=== PATIENT | female | born 1995 | race Hispanic/Latino ===

== ENCOUNTER 2017-05-03 02:16 | Emergency (ER) | payer SELFPAY ==
[2017-05-03 03:00] LABS: #Basophils 0.1 thou/uL (0.0-0.2); #Eosinphils 0.1 thou/uL (0.0-0.7); #Lymphocytes 2.9 thou/uL (1.20-3.40); #Monocytes 0.6 thou/uL (0.11-0.59); #Neutrophils 12.8 thou/uL (1.40-6.50); %Basophils 0.7 % (0.0-1.0); %Eosinophils 0.6 % (0.0-10.0); %Lymphocytes 17.5 % (21.0-51.0); %Monocytes 3.9 % (0.0-10.0); %Neutrophils 77.4 % (42.0-75.0); Hemoglobin 12.1 g/dL (12.0-16.0); Mean Corpuscular HGB CONC 32.3 g/dL (32.0-36.0); Mean Corpuscular Hemoglobin 28.5 pg (27.0-31.0); Mean Corpuscular Volume 88.5 fl (81.0-99.0); Mean Platelet Volume 6.6 fL (7.4-10.4); Platelet Count 276 thou/uL (130-400); Red Blood Cell (RBC) Count 4.23 mill/uL (4.20-5.40); White Blood Cell (WBC) Count 16.5 thou/uL (4.8-10.8)
[2017-05-03] MEDS ORDERED: Ondansetron HCl/PF 4 MG/2 ML Vial ONE (03:07)
[2017-05-03] MEDS ORDERED: Morphine Sulfate 2 MG/ML SYRINGE ONE (03:08)
[2017-05-03] MEDS ORDERED: Sodium Chloride 0.9% 1,000 ML ONE (03:08)
[2017-05-03 03:13] LABS: Clarity Clear (Clear)
[2017-05-03 03:14] LABS: Bilirubin Negative (Negative); Blood, Urine Large (Negative); Glucose, Urine (Dipstick) Negative (Negative); Leukocyte Small (Negative); Nitrite Negative (Negative); Protein, Urine (Dipstick) Trace mg/dL (Neg-Trace); Specific Gravity, Urine 1.025 (1.005-1.030); Urobilinogen 0.2 mg/dL (0.2-1.0)
[2017-05-03 03:15] LABS: Bacteria/HPF None Seen HPF (None Seen); RBC/HPF 21-50 HPF (0-3); WBC/HPF None Seen HPF (0-3)
[2017-05-03 03:21] LABS: Anion Gap 15 mmol/L (10-20); BUN (Urea Nitrogen) 7 mg/dL (7.0-18.7); Calc. Creatinine Clearance 0 mL/min (70-130); Calcium 9.2 mg/dL (7.8-10.44); Carbon Dioxide 17 mmol/L (22-29); Chloride 107 mmol/L (98-107); Estimated GFR-MDRD Greater than 90; Glucose 89 mg/dL (70-105); Potassium 3.9 mmol/L (3.5-5.1); Sodium 135 mmol/L (136-145)
== END 2017-05-03 03:29 | disposition short-term general hospital (02) ==
LOC: NAV ERS 02:16
DX: O99.89 Other specified diseases and conditions complicating pregnancy, childbirth and the puerperium (principal); R10.32 Left lower quadrant pain; R10.31 Right lower quadrant pain; Z3A.14 14 weeks gestation of pregnancy
CPT/HCPCS: 36415; 80048; 81003; 81015; 84702; 85025; 96374; 96375; A4353; J2270; J2405; J7050

== ENCOUNTER 2019-11-23 05:43 | Emergency (ER) | payer MEDICAID, SELFPAY ==
[2019-11-23 06:12] LABS: #Basophils 0.1 thou/uL (0.0-0.2); #Eosinphils 0.1 thou/uL (0.0-0.7); #Lymphocytes 1.2 thou/uL (1.20-3.40); #Monocytes 0.5 thou/uL (0.11-0.59); #Neutrophils 11.5 thou/uL (1.40-6.50); %Basophils 0.5 % (0.0-1.0); %Eosinophils 0.7 % (0.0-10.0); %Lymphocytes 8.6 % (21.0-51.0); %Monocytes 3.8 % (0.0-10.0); %Neutrophils 86.4 % (42.0-75.0); Hemoglobin 14.3 g/dL (12.0-16.0); Mean Corpuscular HGB CONC 32.2 g/dL (32.0-36.0); Mean Corpuscular Hemoglobin 28.9 pg (27.0-31.0); Mean Corpuscular Volume 89.8 fL (78.0-98.0); Mean Platelet Volume 6.5 fL (7.4-10.4); Platelet Count 351 thou/uL (130-400); Red Blood Cell (RBC) Count 4.93 mill/uL (4.20-5.40); White Blood Cell (WBC) Count 13.3 thou/uL (4.8-10.8)
[2019-11-23] MEDS ORDERED: Ondansetron PF 4 MG/2 ML Vial ONE (06:15)
[2019-11-23] MEDS ORDERED: Sodium Chloride 0.9% 1,000 ML ONE (06:15)
[2019-11-23 06:27] LABS: BHCG - Serum Negative (NEGATIVE); Pregs Control Bar Appear? YES (CONTROL BAR)
[2019-11-23] MEDS ORDERED: Morphine 4 MG/ML VIAL ONE ×2 (06:28→07:46)
[2019-11-23 06:31] LABS: ALT (SGPT) 32 U/L (8-55); AST (SGOT) 23 U/L (5-34); Albumin 4.6 g/dL (3.5-5.0); Alkaline Phosphatase 95 U/L (40-110); Anion Gap 16 mmol/L (10-20); BUN (Urea Nitrogen) 16 mg/dL (7.0-18.7); Bilirubin, Total 0.4 mg/dL (0.2-1.2); Calc. Creatinine Clearance 0 mL/min (70-130); Calcium 9.7 mg/dL (7.8-10.44); Carbon Dioxide 22 mmol/L (22-29); Chloride 109 mmol/L (98-107); Estimated GFR-MDRD Greater than 90; Globulin 3.8 g/dL (2.4-3.5); Glucose 123 mg/dL (70-105); Lipase 14 U/L (8-78); Protein, Total 8.4 g/dL (6.0-8.3); Sodium 143 mmol/L (136-145)
[2019-11-23] MEDS ORDERED: Mag-Al Plus 1200 MG/1200 MG/120 MG/30 ML UDCUP ONE (07:19)
[2019-11-23] MEDS ORDERED: Lidocaine Viscous Sol 2% 15 ml UD Cup ONE (07:19)
[2019-11-23 08:07] LABS: Bilirubin Negative (Negative); Blood, Urine Moderate (Negative); Clarity Clear (Clear); Glucose, Urine (Dipstick) Negative (Negative); Leukocyte Trace (Negative); Nitrite Negative (Negative); Protein, Urine (Dipstick) Negative (Neg-Trace); Urobilinogen 0.2 mg/dL (Less than 2)
[2019-11-23 08:09] LABS: Bacteria/HPF 1+ HPF (None Seen); RBC/HPF 21-50 HPF (0-3)
[2019-11-23] MEDS ORDERED: Iopamidol 370 76% 100 ML VIAL ONE (09:00)
--- NOTE | 2019-11-23 09:06 | CT ---
CT Abdomen Pelvis W Con HISTORY: Abdominal pain, nausea, vomiting and diarrhea COMPARISON: None FINDINGS: The lung bases are unremarkable. The patient is post cholecystectomy. The liver, spleen, pancreas, ad renal glands and kidneys are normal. No free air, free fluid or lymphadenopathy seen in the abdomen or pelvis. Uterus and ovaries are present. The small bowel loops are not abnormally dilated. There is fluid in the small bowel loops. A normal-appearing appendix is present. IMPRESSION: No evidence of appendicitis.
== END 2019-11-23 10:01 | disposition home or self-care (01) ==
LOC: NAV ERS 05:43
DX: A08.4 Viral intestinal infection, unspecified (principal)
CPT/HCPCS: 36415; 74177; 80053; 81003; 81015; 83690; 84703; 85025; 96361; 96374; 96375; 96376; J2270; J2405; J7050; Q9967

== ENCOUNTER 2022-04-07 14:22 | Emergency (ER) | payer SELFPAY ==
[2022-04-07 15:08] LABS: #Basophils 0.1 thou/uL (0.0-0.2); #Eosinphils 0.1 thou/uL (0.0-0.7); #Lymphocytes 2.9 thou/uL (1.20-3.40); #Monocytes 0.4 thou/uL (0.11-0.59); #Neutrophils 4.6 thou/uL (1.40-6.50); %Basophils 1.3 % (0.0-1.0); %Eosinophils 0.8 % (0.0-10.0); %Monocytes 4.9 % (0.0-10.0); %Neutrophils 57.1 % (42.0-75.0); Hemoglobin 12.3 g/dL (12.0-16.0); Mean Corpuscular HGB CONC 30.1 g/dL (32.0-36.0); Mean Corpuscular Hemoglobin 28.9 pg (27.0-31.0); Mean Corpuscular Volume 95.9 fL (78.0-98.0); Mean Platelet Volume 7.5 fL (7.4-10.4); Platelet Count 278 thou/uL (130-400); Red Blood Cell (RBC) Count 4.25 mill/uL (4.20-5.40); White Blood Cell (WBC) Count 8.1 thou/uL (4.8-10.8)
[2022-04-07 15:33] LABS: Anion Gap 15 mmol/L (10-20); BUN (Urea Nitrogen) 9 mg/dL (7.0-18.7); Calc. Creatinine Clearance 0 mL/min (70-130); Calcium 9.6 mg/dL (7.8-10.44); Carbon Dioxide 21 mmol/L (22-29); Chloride 108 mmol/L (98-107); Glucose 66 mg/dL (70-105); Sodium 140 mmol/L (136-145)
[2022-04-07] MEDS ORDERED: Acetaminophen 500 MG TAB ONE (15:51)
== END 2022-04-07 15:11 | disposition short-term general hospital (02) ==
LOC: NAV ERS 14:22
DX: O20.9 Hemorrhage in early pregnancy, unspecified (principal); Z3A.01 Less than 8 weeks gestation of pregnancy
CPT/HCPCS: 80048; 84702; 85025; J7042

== ENCOUNTER 2022-10-05 13:30 | Emergency (ER) | payer SELFPAY ==
[2022-10-05] MEDS ORDERED: Boostrix 0.5 ML (Tdap) VIAL (>/=7 yrs of age) ONE (14:18)
== END 2022-10-05 14:35 | disposition home or self-care (01) ==
LOC: NAV ERS 13:30
DX: S61.032A Puncture wound without foreign body of left thumb without damage to nail, initial encounter (principal); Z23 Encounter for immunization; W27.3XXA Contact with needle (sewing), initial encounter
CPT/HCPCS: 90471; 90715

== ENCOUNTER 2023-07-24 21:29 | Emergency (ER) | payer OTHER ==
[2023-07-24 22:27] LABS: Hematocrit 30.7 % (36.0-47.0); Hemoglobin 9.8 g/dL (12.0-16.0); Manual Diff?? NO; Mean Corpuscular Hemoglobin 29.1 pg (27.0-31.0); Mean Corpuscular Volume 90.7 fl (78.0-98.0); Mean Platelet Volume 8.5 fL (7.4-10.4); Platelet Count 199 10x3/uL (130-400); RBC Distribution Width 11.9 % (11.5-14.5); Red Blood Cell (RBC) Count 3.39 mill/uL (4.20-5.40); White Blood Cell (WBC) Count 11.9 10x3/uL (4.8-10.8)
[2023-07-24 22:28] LABS: #Basophils 0.1 thou/uL (0.0-0.2); #Eosinphils 0.1 thou/uL (0.0-0.7); #Lymphocytes 3.1 thou/uL (1.20-3.40); #Monocytes 0.7 thou/uL (0.11-0.59); #Neutrophils 7.9 thou/uL (1.40-6.50); %Eosinophils 0.9 % (0.0-10.0); %Monocytes 5.9 % (0.0-10.0); %Neutrophils 66.2 % (42.0-75.0)
[2023-07-24 22:44] LABS: ALT (SGPT) 15 U/L (8-55); AST (SGOT) 16 U/L (5-34); Albumin 3.1 g/dL (3.5-5.0); Alkaline Phosphatase 76 U/L (40-110); BUN (Urea Nitrogen) 8 mg/dL (7.0-18.7); Bilirubin, Total Less than 0.2 mg/dL (0.2-1.2); Calc. Creatinine Clearance 0 mL/min (70-130); Calcium 8.6 mg/dL (7.6-10.4); Carbon Dioxide 22 mmol/L (22-29); Chloride 108 mmol/L (98-107); Estimated GFR 127; Globulin 2.9 g/dL (2.4-3.5); Glucose 73 mg/dL (70-105); Sodium 135 mmol/L (136-145)
[2023-07-24 22:45] LABS: Anion Gap 5 mmol/L (10-20)
== END 2023-07-24 22:32 | disposition short-term general hospital (02) ==
LOC: NAV ERS 21:29
DX: O60.03 Preterm labor without delivery, third trimester (principal); Z3A.29 29 weeks gestation of pregnancy
CPT/HCPCS: 80053; 85025; 99284

== ENCOUNTER 2023-12-19 23:07 | Emergency (ER) | payer MEDICAID, OTHER | END 2023-12-20 00:14 | disposition home or self-care (01) | LOC: NAV ERS 23:07 | DX: M54.12 Radiculopathy, cervical region (principal) | CPT/HCPCS: 99283 ==